=== PATIENT | female | born 1965 | race African-American/Black ===

== ENCOUNTER 2024-07-01 05:11 | Emergency (ER) | payer SELFPAY ==
[2024-07-01 05:31] VITALS: BP 169/92; PULSE 94; RESP 16; TEMP 97.9; BMI 39.4
[2024-07-01] MEDS ORDERED: TETRACAINE 0.5% OPHTH SOLN 2 ML BOTTLE ONE (05:49)
[2024-07-01] MEDS ORDERED: FLUORESCEIN NA 1 EA STRIP ONE (05:49)
[2024-07-01] MEDS ORDERED: ACETAMINOPHEN 325 MG TABLET (FP) ONE (05:49)
[2024-07-01] MEDS: ACETAMINOPHEN 500 MG TABLET (FP) PO ONE (05:52)
[2024-07-01] MEDS: FLUORESCEIN NA 1 EA STRIP OU ONE (05:53)
[2024-07-01] MEDS: TETRACAINE 0.5% HCL 0.6ML DROPPER.BOTTLE OU ONE (05:53)
[2024-07-01] MEDS ORDERED: MOXIFLOXACIN HCL 0.5% OPHTHALMIC 3 ML BOTTLE OS SCH (10:00)
== END 2024-07-01 07:02 | disposition left against medical advice (07) ==
LOC: JER 05:11
DX: M79.662 Pain in left lower leg (principal); H57.12 Ocular pain, left eye
CPT/HCPCS: 99283-25